=== PATIENT | female | born 1965 | race Caucasian/White ===

== ENCOUNTER 2017-12-25 05:25 | Day surgery (SDC) | payer OTHER ==
[2017-12-25] MEDS ORDERED: GLYCOPYRROLATE 0.4 MG INJ (06:08)
[2017-12-25] MEDS ORDERED: MIDAZOLAM 1 MG/ML 2 ML INJ (06:08)
[2017-12-25] MEDS ORDERED: ROCURONIUM 50 MG INJ (06:08)
[2017-12-25] MEDS ORDERED: PROPOFOL 20 ML (06:08)
[2017-12-25] MEDS ORDERED: FENTAnyl 50 MCG/ML VIAL (06:08)
[2017-12-25] MEDS ORDERED: NEOSTIGMINE 3 MG/3 ML SYRINGE (06:08)
[2017-12-25] MEDS ORDERED: LIDOCAINE 2% (SDV) 5 ML INJ (06:08)
[2017-12-25] MEDS ORDERED: ONDANSETRON 4 MG INJ (06:09)
[2017-12-25] MEDS ORDERED: DEXAMETHASONE 4 MG/ML 1 ML INJ (06:09)
[2017-12-25] MEDS ORDERED: SUCCINYLCHOLINE CHLORIDE 100 MG/5 ML SYG IV (06:18)
[2017-12-25] MEDS ORDERED: EPHEDrine SULFATE 50 MG/5 ML SYG IV (06:30)
[2017-12-25] MEDS ORDERED: hydrALAzine 20 MG INJ IV (06:30)
[2017-12-25] MEDS ORDERED: HYDROmorphONE (0.2 MG/ML) 10ML SYG IV ×2 (06:30)
[2017-12-25] MEDS ORDERED: MIDAZOLAM 1 MG/ML 2 ML INJ IV (06:30)
[2017-12-25] MEDS ORDERED: LABETALOL HCL 20MG INJ IV (06:30)
[2017-12-25] MEDS ORDERED: FENTAnyl 50 MCG/ML VIAL IV ×2 (06:30)
[2017-12-25] MEDS ORDERED: ATROPINE 1 MG/10 ML SYRINGE IV (06:30)
[2017-12-25] MEDS ORDERED: DIPHENHYDRAMINE 50 MG INJ IV (06:30)
[2017-12-25] MEDS ORDERED: OXYCODONE/ACETAMINOPHEN (5/325) TAB PO ×3 (06:30→07:30)
[2017-12-25] MEDS ORDERED: morphine (1 MG/ML) 10ML SYRINGE IV ×3 (06:30)
[2017-12-25] MEDS ORDERED: SOD CHLORIDE 0.9% 1,000 ML IV (07:05)
[2017-12-25] MEDS ORDERED: morphine 2 MG INJ IV (07:30)
[2017-12-25] MEDS ORDERED: ONDANSETRON 4 MG INJ IV (07:30)
[2017-12-25] MEDS ORDERED: CEFAZOLIN 1 GM INJ (07:56)
[2017-12-25] MEDS ORDERED: hydrALAzine 20 MG INJ (08:03)
[2017-12-25] MEDS ORDERED: LABETALOL HCL 20MG INJ (08:06)
[2017-12-25] MEDS: ROPIVACAINE 0.5 % 30 ML VIAL (08:22)
[2017-12-25] MEDS: POVIDONE IODINE 10% 28.4 GM OINT (08:22)
[2017-12-25] MEDS: MEPERIDINE 25 MG INJ IV (09:40)
[2017-12-25] MEDS: ONDANSETRON 4 MG INJ IV (09:40)
[2017-12-25] MEDS: HYDROmorphONE (0.2 MG/ML) 10ML SYG IV ×2 (09:41→09:51)
[2017-12-25] MEDS: OXYCODONE/ACETAMINOPHEN (5/325) TAB PO (10:15)
== END 2017-12-25 10:45 | disposition home or self-care (01) ==
LOC: SDS 05:25 → CCL 05:25 → SDS 05:25
DX: S83.231D Complex tear of medial meniscus, current injury, right knee, subsequent encounter (principal); W19.XXXD Unspecified fall, subsequent encounter; M23.41 Loose body in knee, right knee; M94.261 Chondromalacia, right knee; E66.01 Morbid (severe) obesity due to excess calories; Z68.41 Body mass index [BMI] 40.0-44.9, adult
CPT/HCPCS: 29881; 84703